=== PATIENT | female | born 1975 | race Caucasian/White ===

== ENCOUNTER 2020-11-14 18:08 | Emergency (ER) | payer BC, SELFPAY ==
[2020-11-14 18:25] VITALS: BP 121/71; PULSE 85; RESP 18; TEMP 36.7; O2SAT 99
--- NOTE | 2020-11-14 18:35 | ED.DENTAL ---
HPI - Dental/Oral General Chief complaint: Dental/Oral Stated complaint: thrush and bump on right arm Time Seen by Provider: 11/14/20 18:20 Source: patient History of Present Illness HPI Narrative: Patient presents with thrush to her mouth. Patient states she has been on multiple antibiotics and now feels that she has thrush in her mouth. Related Data Home Medications Medication Instructions Recorded Confirmed amoxicillin-pot clavulanate tablet PO 11/14/20 [Augmentin] bupropion HCl [Wellbutrin SR] 150 mg PO BID 11/14/20 11/14/20 lorazepam [Ativan] 1 mg PO DAILY PRN 11/14/20 11/14/20 naproxen 250 mg PO BID 11/14/20 11/14/20 olmesartan-hydrochlorothiazide 1 tablet PO DAILY 11/14/20 11/14/20 [Benicar HCT] topiramate 200 mg PO BID 11/14/20 11/14/20 Allergies Allergy/AdvReac Type Severity Reaction Status Date / Time No Known Allergies Allergy Verified 11/14/20 18:35 Review of Systems Review of Systems: CONSTITUTIONAL: Denies fever, chills, or sweats. EYES: Denies visual changes, redness, or discharge. ENT: Denies rhinorrhea, congestion, sore throat, or otalgia. CARDIOVASCULAR: Denies chest pain, palpitations, or edema. RESPIRATORY: Denies cough or dyspnea. GASTROINTESTINAL: Denies abdominal pain, nausea, vomiting, or diarrhea. GENITOURINARY: Denies dysuria or hematuria. SKIN: Denies rash or itching. MUSCULOSKELETAL: Denies back pain, joint pain, or myalgia. NEUROLOGIC: Denies headache, numbness, or weakness. PSYCHIATRIC: Denies anxiety or depression. PMFSH Comments At time of signature, agree with nursing past medical, surgical, social and family history. There is no relevant family history pertinent to the presenting complaint Exam Narrative: GENERAL: Well-appearing, well-nourished, and in no acute distress. HEAD: Normocephalic, atraumatic. EYES: PERRLA and EOMI. ENT: Nares clear, no rhinorrhea or epistaxis. Mucous membranes moist. White coating to sides of mouth and tongue that does not scrape off with a tongue depressor NECK: Supple. CHEST: Clear to auscultation. No respiratory distress. HEART: Regular rate and rhythm. No murmur heard. Normal peripheral pulses. ABDOMEN: Soft, nontender, nondistended, normal active bowel sounds. EXTREMITIES: Normal range of motion. No edema. SKIN: Warm, dry, no rash. NEURO: No focal deficits. Alert and oriented x3. [place] Coma Scale Eye Opening: Spontaneous 4 [place] Coma Scale Motor: Obeys Commands 6 [place] Coma Scale Verbal: Oriented 5 [place] Coma Scale Total 15 Course Vital Signs Vital signs: Vital Signs Temperature 36.7 C 11/14/20 18:25 Pulse Rate 85 11/14/20 18:25 Respiratory Rate 18 11/14/20 18:25 Blood Pressure 121/71 11/14/20 18:25 Pulse Oximetry 99 11/14/20 18:25 Temperature 36.7 C 11/14/20 18:25 Pulse Rate 85 11/14/20 18:25 Respiratory Rate 18 11/14/20 18:25 Blood Pressure 121/71 11/14/20 18:25 Pulse Oximetry 99 11/14/20 18:25 MDM - Dental/Oral Differential Diagnosis Differential diagnosis: Likely gingival abscess, dental caries, toothache, dental abscess and aphthous ulcer Critical Care Time Critical Care Time Critical Care Time: No Discharge Plan Discharge Clinical Impression: Oral thrush Patient Disposition: Home, Self-Care Condition: Stable Instructions: Antibiotic Form, Oral Candidiasis (ED) Additional Instructions: Continue probiotic daily Use swish and swallow as prescribed Finish Augmentin as prescribed and follow-up with primary care provider for reevaluation November 21 If any new or worsening symptoms go to ER immediately further evaluation Prescriptions: New nystatin 100,000 unit/mL suspension 1 ml buccal QID 14 Days Qty: 56 RF: 0 No Action bupropion HCl [Wellbutrin SR] 150 mg Tablet Sustained-Release 12 Hr 150 mg PO BID RF: 0 Augmentin 125-31.25 mg Tablet,Chewable PO RF: 0 naproxen 250 mg Tablet 250 mg PO BID RF: 0 topiramate 200 mg Table
== END 2020-11-14 18:45 | disposition home or self-care (01) ==
PROVIDERS: Emergency Provider Nurse Practitioner Family
DX: B37.0 Candidal stomatitis (principal); I10 Essential (primary) hypertension; F41.9 Anxiety disorder, unspecified
CPT/HCPCS: 99213; G0463